=== PATIENT | male | born 1995 | race Caucasian/White ===

== ENCOUNTER 2019-05-27 13:29 | Emergency (ER) | payer SELFPAY ==
[~2019-05-27] VITALS: Ht 165.1 cm; Wt 80.0 kg
[~2019-05-27 13:29] MED LIST: IBUP-1542 PO
[2019-05-27 13:32] VITALS: BP 144/74; PULSE 74; RESP 18; Ht 165.1 cm; Wt 80.0 kg
--- NOTE | 2019-05-27 14:21 | ERD ---
ER Documentation Chief Complaint Chief Complaint SORE THROTA HPI 23-year-old male is here with 3 days of sore throat. No fever. Tolerating oral intake. No cough. Pain with swallowing. No nausea or vomiting or diarrhea. Is not taking any medications for his symptoms. ROS All systems reviewed and are negative except as per history of present illness. Medications Home Meds Active Scripts Ibuprofen* (Motrin*) 600 Mg Tab, 600 MG PO Q6H PRN for PAIN AND OR ELEVATED TEMP, #30 TAB Prov:LIBBY CARRINGTON PA-C 05/27/19 Allergies Allergies: Coded Allergies: No Known Allergy (Unverified , 05/16/16) PMhx/Soc Hx Alcohol Use: Yes Hx Substance Use: No Hx Tobacco Use: No FmHx Family History: No diabetes Physical Exam Vitals Vital Signs Date Temp Pulse Resp B/P (MAP) Pulse Ox O2 O2 Flow FiO2 Time Delivery Rate 05/27/19 98.3 74 18 144/74 99 13:32 (97) Physical Exam INITIAL VITAL SIGNS: Reviewed by me GENERAL: Awake, alert and oriented x 4, well appearing, nontoxic, speaking in full sentences. No acute distress HEAD: Atraumatic NECK: Supple. No masses. Full range of motion. No meningismus. No midline tenderness. EYES: EOMI. PERRL. EAR: No tenderness over the mastoids bilaterally. No exudates in the canals. TMs nonerythematous. NOSE: Normal nose. THROAT: No tonilar erythema or edema. No exudates. Uvula midline. No kissing tonsils. RESPIRATORY: Clear to auscultation bilaterally. Symmetric chest wall rise. No wheezing or rales. No accessory muscle use. CV: Regular rate and rhythm. No murmurs, rubs, or gallops. Procedures/MDM Patient is here with sore throat. Likely viral. No fever and exam is normal. Scription for Motrin given. No indication for antibiotics at this time. Patient counseled regarding my diagnostic impression and care plan. Prior to discharge all questions answered. Pt agrees with treatment plan and understands strict return precautions. Pt is instructed to follow up with primary care provider within 24-48 hours. Precautionary instructions provided including instructions to return to the ER if not improving or for any worsening or changing symptoms or concerns. Departure Diagnosis: Primary Impression: Sore throat Condition: Stable Patient Instructions: Self-Care for Sore Throats Additional Instructions: Llame al doctor MAANA y ken jonathan KARYNA PARA DENTRO DE 1-2 DIALLO.Dgale a la se cretaria que nosotros le instruimos hacer esta karyna.Avise o llame si koroma condicin se empeora antes de la karyna. Regresa aqui si peor o no mejor. LIBBY CARRINGTON PA-C May 27, 2019 14:21
== END 2019-05-27 14:22 | disposition home or self-care (01) ==
LOC: E/R 13:29
DX: J02.9 Acute pharyngitis, unspecified (principal)
CPT/HCPCS: 99282

== ENCOUNTER 2019-06-23 15:01 | Emergency (ER) | payer MEDICAID ==
[~2019-06-23] VITALS: Ht 170.2 cm; Wt 87.4 kg
[~2019-06-23 15:01] MED LIST changes: +OMEP20CA16 PO; +POLY17PO6 PO
[2019-06-23 15:08] VITALS: Ht 170.2 cm; Wt 87.4 kg
[2019-06-23 19:30] VITALS: BP 117/72; PULSE 78; RESP 18
== END 2019-06-23 19:31 | disposition home or self-care (01) ==
LOC: FTE 15:01
DX: R10.32 Left lower quadrant pain (principal); J45.909 Unspecified asthma, uncomplicated
CPT/HCPCS: 82270; Z7502; 99284